=== PATIENT | female | born 1945 | race Caucasian/White ===

== ENCOUNTER 2016-12-12 06:22 | Day surgery (SDC) | payer MEDICARE, OTHER ==
[2016-12-11 13:35] LABS: HEMATOCRIT 39.2 % (36.0-48.0); MCH 29.1 pg (26.0-34.0); MCHC 33.2 g/dL (31.0-37.0); MCV 87.7 fL (80.0-100.0); MEAN PLATELET VOLUME 10.8 fL (7.4-10.4); RBC 4.47 10x6/uL (4.00-5.40); RDW 13.3 % (11.5-14.5)
[~2016-12-12] VITALS: Ht 170.2 cm; Wt 90.7 kg
[~2016-12-12 06:22] MED LIST: LEVOTHYROXINE50 MCG PO; PRAVACHOL40 MG PO; PRINIVIL20 MG PO
[2016-12-12] MEDS ORDERED: VITAMIN D31000 UNI2 PO (07:24)
[2016-12-12] MEDS ORDERED: VITAMIN B-12100 MCG (07:25)
[2016-12-12] MEDS ORDERED: CALCIUM 600+D T1 TA1 (07:25)
[2016-12-12 07:31] VITALS: BP 137/62; Ht 170.2 cm; Wt 90.7 kg
[2016-12-12] MEDS ORDERED: NORCO 7.5/325 T1 TA1 PO (08:52)
--- NOTE | 2016-12-12 13:18 | NUR ---
0945 IV DC WITH CATHER TIP INTACT
--- NOTE | 2016-12-23 12:19 | OP ---
PATIENT NAME: GOYO FARMER MEDICAL RECORD: [id number] :47 LOCATION:[facility] ADMISSION DATE: SURGEON: SERGIO RITCHIE MD DATE OF OPERATION: 12/12/2016 PREOPERATIVE DIAGNOSIS: Right carpal tunnel syndrome. POSTOPERATIVE DIAGNOSIS: Right carpal tunnel syndrome. PROCEDURE PERFORMED: Right carpal tunnel release. SURGEON: Jean Claude Ritchie MD ANESTHESIA: TIVA with local. CONDITION: She tolerated the procedure well, was transferred to recovery room in stable condition at termination of procedure. INDICATIONS: This is a pleasant 71-year-old female with carpal tunnel syndrome. This is not getting better at this juncture. She got this confirmed with study. She wants to go ahead and proceed with a carpal tunnel release. We had discussed risks, benefits, alternatives including nerve, artery and vein injuries. She understands and wishes to proceed. OPERATIVE REPORT: The patient was taken to the operating room, placed in a supine position. TIVA anesthesia was obtained. After this was accomplished, she was prepped and draped in the standard fashion. Once this was accomplished, she had her right carpal tunnel area infiltrated with 0.25% Marcaine plain and 1% lidocaine plain. Once this was done, a mid palmar incision was made. This was taken down. The transverse carpal ligament was identified. A hemostat was placed below it. The ligament was then transected down onto the hemostat. Once this was accomplished and the nerve was clearly freed up and then the case was brought to termination, she was copiously irrigated and then closed with interrupted 3-0 Prolene sutures and then placed in a volar splint. She tolerated this well, was awakened and transferred back to the outpatient surgery in a stable condition. TRANSINT:[id number] Voice Confirmation ID: [id number] DOCUMENT ID: [id number] SERGIO RITCHIE MD at 1219 CC: [id number] DICTATION DATE: 12/12/16 0851 FLIGHT RESERVATIONS MANAGER: 12/12/16 1752 [facility] 12/12/16 [place] [address]
== END 2016-12-12 10:15 | disposition home or self-care (01) ==
LOC: D.PAN 06:22 → D.OPS 08:30 → D.PAN 08:30
PROVIDERS: Anesthesiology
DX: G56.01 Carpal tunnel syndrome, right upper limb (principal)

== ENCOUNTER → 2017-03-20 16:32 | Outpatient (CLI) | payer MEDICARE, OTHER ==
[2016-12-12 07:31] VITALS: BMI 31.4
[~2017-03-20 16:32] MED LIST changes: +CALCIUM 600+D T1 TA1; +NORCO 7.5/325 T1 TA1 PO; +VITAMIN B-12100 MCG; +VITAMIN D31000 UNI2 PO
== END | disposition home or self-care (01) ==
LOC: D.MAMMO 10:15
DX: Z12.31 Encounter for screening mammogram for malignant neoplasm of breast (principal)

== ENCOUNTER → 2018-03-23 05:18 | Outpatient (CLI) | payer MEDICARE, OTHER ==
[2016-12-12 07:31] VITALS: BMI 31.4
== END | disposition home or self-care (01) ==
LOC: D.MAMMO 05:18
DX: Z12.31 Encounter for screening mammogram for malignant neoplasm of breast (principal)

== ENCOUNTER 2019-04-08 08:00 | Outpatient (CLI) | payer MEDICARE ==
[2016-12-12 07:31] VITALS: BMI 31.4
== END 2019-04-08 23:59 | disposition home or self-care (01) ==
LOC: D.MAMMO 08:00
PROVIDERS: ATTEND Family Medicine
DX: Z12.31 Encounter for screening mammogram for malignant neoplasm of breast (principal)

== ENCOUNTER 2020-04-30 08:00 | Outpatient (CLI) | payer MEDICARE ==
[2016-12-12 07:31] VITALS: BMI 31.4
== END 2020-04-30 10:00 | disposition home or self-care (01) ==
LOC: D.MAMMO 08:00
PROVIDERS: ATTEND Family Medicine
DX: Z12.31 Encounter for screening mammogram for malignant neoplasm of breast (principal)